=== PATIENT | female | born 1955 | race Caucasian/White ===

== ENCOUNTER 2020-11-17 10:55 | Emergency (ER) | payer BC, MEDICARE ==
[~2020-11-17] VITALS: Ht 170.2 cm; Wt 74.8 kg
--- NOTE | 2020-11-17 11:15 | NUR ---
BIBA [id number] "Was out for morning wall tripped-fell Hurt nose/lip, Left knee and rates pain 08/27. Denies LOC. Left knee with min bleeding.Nose with small abrassion. Respiration regular and unlabored. Will continue to monitor the patient.
[2020-11-17] MEDS ORDERED: LIDOCAINE 2% 20 ML MDV ONE (11:21)
[2020-11-17] MEDS ORDERED: LIDOCAINE 1% INJ 50 ML MDV IJ ONE (11:22)
[2020-11-17] MEDS ORDERED: TDAP [DIPH/PERTUSSIS/TET] 0.5 ML VIAL IM ONE (11:40)
[2020-11-17] MEDS ORDERED: LIDOCAINE 1%-EPI 1:100,000 20 ML VIAL ONE (11:40)
[2020-11-17] MEDS: LIDOCAINE 1%-EPI 1:100,000 50 ML VIAL IJ ONE (11:42)
[2020-11-17] MEDS: TDAP [DIPH/PERTUSSIS/TET] 0.5 ML VIAL IM ONE (11:42)
--- NOTE | 2020-11-17 13:57 | NUR ---
Patient discharged to home in stable condition. Written and verbal after care instructions given. Patient verbalizes understanding of instruction.
[2020-11-17 14:01] VITALS: BP 137/70
== END 2020-11-17 14:01 | disposition home or self-care (01) ==
LOC: ER 11:05
DX: S62.317A Displaced fracture of base of fifth metacarpal bone, left hand, initial encounter for closed fracture (principal); S81.012A Laceration without foreign body, left knee, initial encounter; S01.21XA Laceration without foreign body of nose, initial encounter; S60.222A Contusion of left hand, initial encounter; I10 Essential (primary) hypertension; F32.9 Major depressive disorder, single episode, unspecified; Z88.8 Allergy status to other drugs, medicaments and biological substances; Z88.1 Allergy status to other antibiotic agents; Z88.0 Allergy status to penicillin; W01.0XXA Fall on same level from slipping, tripping and stumbling without subsequent striking against object, initial encounter; Y93.89 Activity, other specified; Y92.89 Other specified places as the place of occurrence of the external cause; Y99.8 Other external cause status
CPT/HCPCS: 12002; 12011; 70486; 73130; 73564; 90471; 90715; 99284; A6403; J3490 ×2

== ENCOUNTER 2020-12-05 08:18 | Emergency (ER) | payer MEDICARE ==
[~2020-12-05] VITALS: Ht 170.2 cm; Wt 73.0 kg
[2020-12-05 08:26] VITALS: BP 131/67
[2020-12-05] MEDS ORDERED: LIDOCAINE/PRILOCAINE (5GM) 5 GM TUBE TP ONE (08:31)
--- NOTE | 2020-12-05 08:42 | NUR ---
65 years old female alert, oriented x4 presents to er for left knee suture removal. no drainage no redness, no pain.
[2020-12-05] MEDS ORDERED: LIDOCAINE/PRILOCAINE 1 EA KIT TP ONE (09:00)
[2020-12-05] MEDS ORDERED: BENZOIN COMPOUND TINCT 60 ML BOTTLE ONE (09:17)
--- NOTE | 2020-12-05 09:31 | NUR ---
Patient discharged to home in stable condition. Written and verbal after care instructions given. Patient verbalizes understanding of instruction.
== END 2020-12-05 09:30 | disposition home or self-care (01) ==
LOC: ER 08:20
DX: S81.012D Laceration without foreign body, left knee, subsequent encounter (principal); S01.21XD Laceration without foreign body of nose, subsequent encounter; I10 Essential (primary) hypertension; F32.9 Major depressive disorder, single episode, unspecified; Z88.8 Allergy status to other drugs, medicaments and biological substances; Z88.1 Allergy status to other antibiotic agents; Z88.0 Allergy status to penicillin; W19.XXXD Unspecified fall, subsequent encounter
CPT/HCPCS: 99282; A6403

== ENCOUNTER 2020-12-19 07:43 | Emergency (ER) | payer MEDICARE ==
[~2020-12-19] VITALS: Ht 170.2 cm; Wt 72.6 kg
[2020-12-19 07:50] VITALS: BP 111/82
--- NOTE | 2020-12-19 07:52 | NUR ---
left knee wound check, denies pain at this time. Patient a/ox4, breathing even and unlabored, no sob noted. Ambulatory with steady gait.
--- NOTE | 2020-12-19 08:22 | NUR ---
Wound cleansed. Patient discharged to home in stable condition. Written and verbal after care instructions given. Patient verbalizes understanding of instruction.
== END 2020-12-19 08:23 | disposition home or self-care (01) ==
LOC: ER 07:45
DX: S81.012D Laceration without foreign body, left knee, subsequent encounter (principal); I10 Essential (primary) hypertension; E78.00 Pure hypercholesterolemia, unspecified; F32.9 Major depressive disorder, single episode, unspecified; Z88.0 Allergy status to penicillin; Z88.1 Allergy status to other antibiotic agents; Z88.8 Allergy status to other drugs, medicaments and biological substances; X58.XXXD Exposure to other specified factors, subsequent encounter
CPT/HCPCS: 99281; A6403

== ENCOUNTER 2020-12-19 13:35 | Outpatient (CLI) | payer MEDICARE | END 2020-12-19 23:59 | disposition home or self-care (01) | LOC: WOU 13:35 | PROVIDERS: ATTEND Nurse Practitioner Family | DX: S81.012A Laceration without foreign body, left knee, initial encounter (principal); W19.XXXA Unspecified fall, initial encounter; Y92.89 Other specified places as the place of occurrence of the external cause; I10 Essential (primary) hypertension; Z79.899 Other long term (current) drug therapy | CPT/HCPCS: 11042 ==

== ENCOUNTER 2021-01-02 14:00 | Outpatient (CLI) | payer MEDICARE | END 2021-01-02 23:59 | disposition home or self-care (01) | LOC: WOU 14:00 | PROVIDERS: ATTEND Surgery | DX: S81.012D Laceration without foreign body, left knee, subsequent encounter (principal); W18.30XD Fall on same level, unspecified, subsequent encounter | CPT/HCPCS: G0463 ==

== ENCOUNTER 2021-01-03 08:00 | Outpatient (CLI) | payer MEDICARE | END 2021-01-03 23:59 | disposition home or self-care (01) | LOC: RAD 08:00 | PROVIDERS: ATTEND Surgery | DX: M25.462 Effusion, left knee (principal); M79.89 Other specified soft tissue disorders | CPT/HCPCS: 73562 ==

== ENCOUNTER 2021-01-09 15:00 | Outpatient (CLI) | payer MEDICARE | END 2021-01-09 23:59 | disposition home or self-care (01) | LOC: WOU 15:00 | PROVIDERS: ATTEND Surgery | DX: S81.012D Laceration without foreign body, left knee, subsequent encounter (principal); W18.30XD Fall on same level, unspecified, subsequent encounter | CPT/HCPCS: G0463 ==